=== PATIENT | female | born 1945 | race Caucasian/White ===

== ENCOUNTER 2017-06-27 19:29 | Inpatient (IN) ==
[2017-06-27] MEDS ORDERED: LACTATED RINGERS 1,000 ML IV ONE (19:55)
--- NOTE | 2017-06-27 19:55 | Emergency Department Note ---
General Adult HPI - General Chief complaint: Weakness Stated complaint: weakness Time Seen by Provider: 06/27/17 19:53 Source: EMS Mode of arrival: EMS Limitations: no limitations - History of Present Illness HPI Narrative: This patient in general has felt weak. She has had a cough recently she does have COPD on home oxygen. She says she does not feel any more short of breath than usual. - Related Data Home Medications Medication Instructions Recorded Confirmed aspirin 81 mg tablet,delayed 81 mg PO QDAY tab 11/20/14 06/05/17 release Albuterol Sulfate [Ventolin] 2 puff INH Q4HP PRN 07/20/15 06/05/17 Polyethylene Glycol 3350 [Miralax] 17 gm PO DAILYP PRN 07/20/15 06/05/17 Bowel Regimen 07/30/15 06/05/17 cholecalciferol (vitamin D3) 1,000 1,000 unit PO QDAY cap 11/21/16 06/05/17 unit capsule guaifenesin ER 600 mg tablet, 600 mg PO Q12H PRN 11/21/16 06/05/17 extended release 12 hr lactobacillus combination no.8 3 3,000 mmu cells PO QDAY 11/21/16 06/05/17 billion cell capsule magnesium oxide 400 mg capsule 400 mg PO QDAY 11/21/16 06/05/17 oxygen 3L via nasal cannula 11/21/16 06/05/17 vit C 150 mg-vit E 30 unit-lutein 1 cap PO QDAY 11/21/16 06/05/17 5 [id number] 3 150 mg capsule colchicine 0.6 mg tablet 0.6 mg PO QDAY 06/05/17 06/05/17 Previous Rx's Medication Instructions Recorded furosemide 40 mg tablet 80 mg PO QDAY 90 Days #180 tab 09/11/16 albuterol sulfate 2.5 mg/3 mL 2.5 mg INHALATION QID #360 ml 09/21/16 (0.083 %) solution for nebulization tiotropium bromide 18 mcg capsule 1 cap INHALATION QDAY #90 puff 10/06/16 with inhalation device lovastatin 40 mg tablet 40 mg PO QPM 90 Days #90 tab 12/04/16 losartan 100 mg tablet 100 mg PO QDAY 90 Days #90 tab 12/18/16 potassium chloride ER 10 mEq 10 meq PO TID 90 Days #270 tab 01/15/17 tablet,extended release Aggrenox 25 mg-200 mg capsule, 1 cap PO BID 90 Days #180 cap NS 02/06/17 extended release amlodipine 5 mg tablet 5 mg PO QDAY #90 tab 03/13/17 allopurinol 300 mg tablet 300 mg PO QDAY #90 tab 05/15/17 prednisone 10 mg tablet 10 mg PO DAILY #30 tab 06/05/17 Albuterol Sulfate [Ventolin] 2 puff INH Q4-6HP PRN #1 inhaler 06/15/17 predniSONE [Prednisone] 20 mg PO DAILY #23 tab 06/15/17 fentanyl 25 mcg/hr transdermal 1 patch TRANSDERMA Q72H #9 patch 06/26/17 patch hydrocodone 10 mg-acetaminophen 2 tab PO TID PRN #162 tab 06/26/17 325 mg tablet Allergies Allergy/AdvReac Type Severity Reaction Status Date / Time Cough syrup with codeine AdvReac Mild Gastrointestinal Uncoded 06/05/17 10:22 Upset Review of Systems All systems ED: reviewed and negative except as stated. Past Medical History - Past Medical History Medical history: Reports: COPD, hyperlipidemia, hypertension, osteoporosis, renal disease, other (eview of cellulitis. Bronchitis. UTI. Pneumonia. Severe sepsis. Spinal cord stimulator. Out. Cerebellar stroke syndrome. Degenerative arthritis.diverticulosis of colon. Vitamin D deficiency. Anemia.) [employer] history: Reports: non-contributory Surgical history ED: Reports: non-contributory, hysterectomy - Social History smoking status: Former smoker Alcohol use: Reports: Unknown Drug use: Reports: unknown Physical Exam Limitations: no limitations General appearance: alert, in no apparent distress Head: atraumatic Eye: Present: normal appearance ENT: normal exam Neck: Present: normal inspection Chest: Present: normal inspection Respiratory: Present: normal lung sounds bilaterally Cardiovascular: Present: regular rate, normal rhythm, normal heart sounds Abdominal: Present: soft. Absent: distention, tenderness Neurological: Present: alert Psychiatric: Present: normal affect, normal mood Skin: Present: warm, dry, intact Course Vital Signs Temperature 100.3 F H 06/27/17 19:30 Pulse Rate 115 H 06/27/17 19:30 Respiratory Rate 19 06/27/17 19:30 Blood Pressure 141/85 06/27/17 19:30 Pulse Oximetry (%) 97 06/27/17 19:30 Temperature 100.3 F H 06/27/17 19:30 Pulse Rate 109 H 06/27/17 20:46 Respiratory Rate 19 06/27/17 20:46 Blood Pressure 155/74 06/27/17 20:46 Pulse Oximetry (%) 98 06/27/17 20:46 Medical Decision Making - MDM Narrative Medical decision making narrative: Patient will be admitted to the hospital for presumed pneumonia - Lab Data Lab results reviewed: Yes I reviewed the patient's lab results. Result diagrams: 06/27/17 20:04 06/27/17 20:04 Lab Results 06/27/17 06/27/17 06/27/17 Range/Units 20:04 20:04 20:04 WBC 16.9 H (4.5-11.0) K/mcL RBC 3.90 L (4.00-5.20) M/mcL Hgb 12.6 (12.0-15.0) g/dL Hct 38.5 (36.0-48.0) % MCV 98.8 (80.0-100.0) fL MCH 32.4 (26.0-34.0) pg MCHC 32.8 (31.0-36.0) g/dL RDW 13.5 (11.5-14.5) % Plt Count 304 (140-440) K/mcL MPV 9.1 (7.4-10.4) fL Gran % 79.6 H (38.0-78.0) % Lymph % (Auto) 11.1 L (15.5-49.0) % [place] % (Auto) 7.7 (1.0-12.0) % Eos % (Auto) 1.1 (0.0-7.0) % Baso % (Auto) 0.5 (0.0-2.0) % Gran # 13.4 H (1.8-8.0) K/mcL Lymph # (Auto) 1.9 (1.5-4.8) K/mcL [place] # (Auto) 1.3 H (0.1-0.9) K/mcL Eos # (Auto) 0.2 (0.0-0.7) K/mcL Baso # (Auto) 0.1 (0.0-0.3) K/mcL VBG Lactic Acid 2.1 (0.5-2.2) mmol/L Sodium 141 (133-145) mmol/L Potassium 4.4 (3.3-5.1) mmol/L Chloride 94 L (96-108) mmol/L Carbon Dioxide 31 H (22-30) mmol/L Anion Gap 16.0 (8-16) BUN 27 H (8-23) mg/dl Creatinine 1.4 H (0.6-1.1) mg/dl GFR Calculation 38 Glucose 184 H (70-105) mg/dL Calcium 9.7 (8.6-10.4) mg/dl Total Bilirubin < 0.2 (0.0-1.0) mg/dL AST 15 (0-37) U/l ALT 17 (0-40) U/l Alkaline Phosphatase 73 (39-117) U/L Troponin T (0-0.03) ng/ml Total Protein 6.3 (5.9-8.4) gm/dL Albumin 3.7 (3.2-5.2) gm/dL Globulin 2.6 (2.2-3.7) gm/dL Albumin/Globulin Ratio 1.4 (1.0-2.3) 06/27/17 Range/Units 20:04 WBC (4.5-11.0) K/mcL RBC (4.00-5.20) M/mcL Hgb (12.0-15.0) g/dL Hct (36.0-48.0) % MCV (80.0-100.0) fL MCH (26.0-34.0) pg MCHC (31.0-36.0) g/dL RDW (11.5-14.5) % Plt Count (140-440) K/mcL MPV (7.4-10.4) fL Gran % (38.0-78.0) % Lymph % (Auto) (15.5-49.0) % [place] % (Auto) (1.0-12.0) % Eos % (Auto) (0.0-7.0) % Baso % (Auto) (0.0-2.0) % Gran # (1.8-8.0) K/mcL Lymph # (Auto) (1.5-4.8) K/mcL [place] # (Auto) (0.1-0.9) K/mcL Eos # (Auto) (0.0-0.7) K/mcL Baso # (Auto) (0.0-0.3) K/mcL VBG Lactic Acid (0.5-2.2) mmol/L Sodium (133-145) mmol/L Potassium (3.3-5.1) mmol/L Chloride (96-108) mmol/L Carbon Dioxide (22-30) mmol/L Anion Gap (8-16) BUN (8-23) mg/dl Creatinine (0.6-1.1) mg/dl GFR Calculation Glucose (70-105) mg/dL Calcium (8.6-10.4) mg/dl Total Bilirubin (0.0-1.0) mg/dL AST (0-37) U/l ALT (0-40) U/l Alkaline Phosphatase (39-117) U/L Troponin T < 0.01 (0-0.03) ng/ml Total Protein (5.9-8.4) gm/dL Albumin (3.2-5.2) gm/dL Globulin (2.2-3.7) gm/dL Albumin/Globulin Ratio (1.0-2.3) - Radiology Data Radiology results reviewed: Yes I reviewed the patient's radiology results. Disposition Pt seen by JACQUARD CARD LACER/PA only: No Clinical Impression: Pneumonia Disposition: Xfer As Inpt ([facility]) Condition: Fair Time of Disposition: 21:37
[2017-06-27 20:41] LABS: Basophils # (Auto) 0.1 K/mcL (0.0-0.3); Basophils % (Auto) 0.5 % (0.0-2.0); Eosinophils # (Auto) 0.2 K/mcL (0.0-0.7); Eosinophils % (Auto) 1.1 % (0.0-7.0); Granulocytes % (Auto) 79.6 % (38.0-78.0); Lymphocytes # (Auto) 1.9 K/mcL (1.5-4.8); Lymphocytes % (Auto) 11.1 % (15.5-49.0); Mean Cell Volume 98.8 fL (80.0-100.0); Mean Corpuscular HGB Conc 32.8 g/dL (31.0-36.0); Mean Corpuscular Hemoglobin 32.4 pg (26.0-34.0); Monocytes # (Auto) 1.3 K/mcL (0.1-0.9); Monocytes % (Auto) 7.7 % (1.0-12.0); Platelet Count 304 K/mcL (140-440); Red Cell Distribution Width 13.5 % (11.5-14.5)
[2017-06-27 21:03] LABS: ALT/SGPT 17 U/l (0-40); Albumin 3.7 gm/dL (3.2-5.2); Albumin/Globulin Ratio 1.4 (1.0-2.3); Alkaline Phosphatase 73 U/L (39-117); Blood Urea Nitrogen 27 mg/dl (8-23)
[2017-06-27] MEDS ORDERED: ACETAMINOPHEN 325 MG TABLET PO ONE (21:30)
[2017-06-27 22:50] LABS: Appearance,Urine CLEAR; Bacteria,Urine 0 /hpf (0); Bilirubin,Urine NEG (NEG); Color,Urine YELLOW; Glucose,Urine (UA) NEGATIVE (NEG); Leukocyte Esterase,Urine NEG /uL (NEG); Mucus,Urine FEW /hpf (0); Protein,Urine NEG (NEG); Specific Gravity,Urine 1.014 (1.000-1.035); Urine Blood NEG mg/dL (<0.03); Urine RBC < 1 /hpf (0-1); Urine Squamous Epithelial Cell < 1 /hpf (0-4); Urine Transitional Epi Cells < 1 /hpf (0-2); Urine WBC 0 /hpf (0-4); Urobilinogen,Urine NEG (NEG)
--- NOTE | 2017-06-27 22:54 | Internal Med History&Physical ---
Medical - H&P: HPI Patient information: Note initiated : 06/27/17 at 10:49 pm Service Date, if different from initiated Date: [] Patient: Yvon Estrada 72 y/o F admitted on for Weakness. Chief Complaint: [] History of present illness: Ms. Estrada is a 72 year old Female with severe copd, on 3L oxyen, morbidly obese, presents to the ER with fatige and shortness of breath with minimal activity going on for the last 2 days, the patient was here 12 days ago for shortness of breath and copd exacerbation and was treated with antibiotics and steroids, she never fully recovered from that episode. The patient notes that she just just weak and too fatigued to do anything, at baseline she is able to do basic transfer s and use her walker to go around the house a bit. But now even moving in the bed is too much ,denies any sick contacts, she has chr cough, may be slightly worse than before with minimal expectorations. Usually an infection/ pneumoina will get her very down as per her family. The patient has some headache, and chr back pain, She denies any other complaints She has severe copd on 3L oxygen at home uses prn prednisone and antibiotics, but this time since she just completed the course did not use it again. In the ER the patient was on 4L oxygen, usually uses 3L , she was short of breath with minimal activity, her labs show leucocytosis at 16K, creat is elevated at 1.4 (baseline 1.0 to 1). ABG shows Ph 7.45/54/109 on 4L UA poc is clear, Patient is being admitted to the hospital for possible pna/ copd exacerbation. All systems: reviewed and no additional remarkable complaints except as stated ( as per HPI,) Medical - H&P: PM Medical history: Medical History (Last Reviewed 06/05/17 @ 10:15 by Brittany Castro RN) Cellulitis (Acute) Abscess of skin or subcutaneous tissue (Acute) Upper respiratory infection (Acute) Bilateral otitis media (Acute) COPD (chronic obstructive pulmonary disease) (Acute) Hypertensive urgency (Acute) COPD exacerbation (Acute) Acute exacerbation of chronic obstructive airways disease (Acute) Otitis media (Acute) Oropharyngeal dysphagia (Chronic 08/04/15) Bronchitis (Acute) UTI (urinary tract infection) (Acute) Community acquired pneumonia (Acute) Severe sepsis (Acute) Pneumonia (Acute) Spinal cord stimulator status (Resolved) Essential hypertension (Chronic) Edema (Chronic) Gout (Chronic) Chronic obstructive pulmonary disease (Chronic 06/30/14) Back pain (Chronic) Cerebellar stroke syndrome (Chronic) Degenerative arthritis (Chronic) Osteoporosis screening (Chronic) Diverticulosis of colon (Chronic) Dyslipidemia (Chronic) Vitamin D deficiency (Chronic) Anemia (Chronic 01/20/14) Chronic kidney disease (Chronic 06/30/14) Abscess of skin (Inactive 06/16/14) Breast deformity (Inactive 06/16/14) COPD with acute bronchitis (Inactive) Acute bronchospasm (Inactive) Cough (Inactive) Methicillin resistant Staphylococcus aureus infection (Inactive 06/19/14) Proteinuria (Resolved) Spring ligament tear (Inactive 04/03/14) 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) Surgical history: Past Surgical History (Last Reviewed 06/05/17 @ 10:15 by Brittany Castro RN) History of hysterectomy (Resolved) History of colonoscopy (Resolved 04/04/10) Pertinent family history: Family History (Last Reviewed 06/05/17 @ 10:15 by Brittany Castro RN) Unknown No pertinent family history Medical - H&P: Meds Home Medications Medication Instructions Recorded Confirmed Type aspirin 81 mg tablet,delayed 81 mg PO QDAY tab 11/20/14 06/05/17 History release Albuterol Sulfate [Ventolin] 2 puff INH Q4HP PRN 07/20/15 06/05/17 History Polyethylene Glycol 3350 [Miralax] 17 gm PO DAILYP PRN 07/20/15 06/05/17 History Bowel Regimen 07/30/15 06/05/17 History furosemide 40 mg tablet 80 mg PO QDAY 90 Days #180 tab 09/11/16 06/05/17 Rx albuterol sulfate 2.5 mg/3 mL 2.5 mg INHALATION QID #360 ml 09/21/16 06/05/17 Rx (0.083 %) solution for nebulization tiotropium bromide 18 mcg capsule 1 cap INHALATION QDAY #90 puff 10/06/16 Rx with inhalation device cholecalciferol (vitamin D3) 1,000 1,000 unit PO QDAY cap 11/21/16 06/05/17 History unit capsule guaifenesin ER 600 mg tablet, 600 mg PO Q12H PRN 11/21/16 06/05/17 History extended release 12 hr lactobacillus combination no.8 3 3,000 mmu cells PO QDAY 11/21/16 06/05/17 History billion cell capsule magnesium oxide 400 mg capsule 400 mg PO QDAY 11/21/16 06/05/17 History oxygen 3L via nasal cannula 11/21/16 06/05/17 History vit C 150 mg-vit E 30 unit-lutein 1 cap PO QDAY 11/21/16 06/05/17 History 5 [id number] 3 150 mg capsule lovastatin 40 mg tablet 40 mg PO QPM 90 Days #90 tab 12/04/16 06/05/17 Rx losartan 100 mg tablet 100 mg PO QDAY 90 Days #90 tab 12/18/16 06/05/17 Rx potassium chloride ER 10 mEq 10 meq PO TID 90 Days #270 tab 01/15/17 06/05/17 Rx tablet,extended release Aggrenox 25 mg-200 mg capsule, 1 cap PO BID 90 Days #180 cap NS 02/06/17 Rx extended release amlodipine 5 mg tablet 5 mg PO QDAY #90 tab 03/13/17 06/05/17 Rx allopurinol 300 mg tablet 300 mg PO QDAY #90 tab 05/15/17 06/05/17 Rx colchicine 0.6 mg tablet 0.6 mg PO QDAY 06/05/17 06/05/17 History prednisone 10 mg tablet 10 mg PO DAILY #30 tab 06/05/17 06/05/17 Rx Albuterol Sulfate [Ventolin] 2 puff INH Q4-6HP PRN #1 inhaler 06/15/17 Rx predniSONE [Prednisone] 20 mg PO DAILY #23 tab 06/15/17 Rx fentanyl 25 mcg/hr transdermal 1 patch TRANSDERMA Q72H #9 patch 06/26/17 Rx patch hydrocodone 10 mg-acetaminophen 2 tab PO TID PRN #162 tab 06/26/17 06/26/17 Rx 325 mg tablet Allergies Allergy/AdvReac Type Severity Reaction Status Date / Time Cough syrup with codeine AdvReac Mild Gastrointestinal Uncoded 06/05/17 10:22 Upset Medical - H&P: Exam - Constitutional Vitals: Temp Pulse Resp BP Pulse Ox 100.3 F H 107 H 24 H 141/71 98 06/27/17 19:30 06/27/17 22:16 06/27/17 22:16 06/27/17 22:16 06/27/17 22:16 Exam: GENERAL: The patient is a well-developed, well-nourished in no apparent distress. Is alert and oriented x3. Morbidly obese VITAL SIGNS: Reviewed and as noted elsewhere. HEENT: Head is normocephalic and atraumatic. Extraocular muscles are intact. Pupils are equal, round, and reactive to light. Nares appeared normal. Mouth appears any without lesions. Mucous membranes are dry. NECK: Normal to inspection, Supple, No lymphadenopathy or thyromegaly, short neck . LUNGS: Air entry equal on both sides, kenia poor air entry, kenia exp wheezing, prolonged exp phase, pt speaks 5-6 words then rests, (not sure baseline) no use of accesory muscles. HEART: Regular tachycardic rate and rhythm normal, S1 and S2 heard, no Gallop, S3 or Rub Noted, No Gross murmur heard. ABDOMEN: Soft, nontender, and nondistended. Positive bowel sounds. No hepatosplenomegaly was noted. EXTREMITIES: No cyanosis, clubbing, rash, lesions or kenia trace edema. NEUROLOGIC: Cranial nerves II through XII are grossly intact. Motor and Sensory System Grossly Intact PSYCHIATRIC: Normal affect, Normal Mood. Appropriate Behavior. SKIN: No ulceration or wounds noted, No jaundice, No rash noted. (dry feet, scaly poorly kept feet) Medical - H&P: Reslt - Labs CBC & Chem 7: 06/27/17 20:04 06/27/17 20:04 Labs: Short CBC 06/27/17 Range/Units 20:04 WBC 16.9 H (4.5-11.0) K/mcL Hgb 12.6 (12.0-15.0) g/dL Hct 38.5 (36.0-48.0) % Plt Count 304 (140-440) K/mcL BMP 06/27/17 20:04 Sodium 141 Potassium 4.4 Chloride 94 L Carbon Dioxide 31 H BUN 27 H Creatinine 1.4 H Glucose 184 H Calcium 9.7 Cardiac Enzymes 06/27/17 Range/Units 20:04 Troponin T < 0.01 (0-0.03) ng/ml Liver Function 06/27/17 Range/Units 20:04 Total Bilirubin < 0.2 (0.0-1.0) mg/dL AST 15 (0-37) U/l ALT 17 (0-40) U/l Alkaline Phosphatase 73 (39-117) U/L Albumin 3.7 (3.2-5.2) gm/dL Medical - H&P: A/P - Narrative A/P Narrative: A/P Health care associated pneumonia Leucocytosis Acute on chr hypoxic / hypercapenic resp failure on 3L oxygen at baseline, now needs 4 morbid obesity Chr back pain HTN HLD h/o CVA in the past Gout severe fatigue Plan Admit to med surg Check procalcitonin, await official X ray results, possibly has some infiltrate on the left base, Pt has leucocytosis, but also has h/o recent steroid use. IV antibiotics, vancomycin and zosyn Get blood cultures, not making much sputum, so will not order sputum cx check tsh IV steoids, Duonebs Continue supplemental oxygen Prn bipap if needed IV dialudid and hydrocodone for pain for now, Resume home meds once verifed DVT lovenox sq Diet Regular diet DNR code status. Social History - Social History household members: family housing: house lives independently: Yes (Daughter assists patient) marital status: occupational status: retired - Tobacco smoking status: Former smoker - Alcohol alcohol intake frequency: a few times a month - Substance use substance use type: does not use
[2017-06-27] MEDS ORDERED: HYDROmorphone 2 MG/ML VIAL IV PRN (23:37)
[2017-06-27] MEDS ORDERED: VANCOMYCIN 1,500 MG in 0.9 % SODIUM CHLORIDE 500 ML IV ONE (23:37)
[2017-06-27] MEDS ORDERED: ONDANSETRON 4 MG/2 ML VIAL IV PRN (23:37)
[2017-06-27] MEDS ORDERED: ACETAMINOPHEN 325 MG TABLET PO PRN (23:37)
[2017-06-27] MEDS ORDERED: VANCOMYCIN PER PHARMACY IV ONE (23:37)
[2017-06-27] MEDS: 0.9 % SODIUM CHLORIDE 1,000 ML IV SCH (23:56)
[2017-06-27 23:57] LABS: proBNP 322.4 pg/ml (0-125)
[2017-06-27] MEDS: PIPERACILLIN SODIUM/TAZOBACTAM 3.375 GM in DEXTROSE 5% IN WATER 50 ML IV SCH (23:57)
[2017-06-28] MEDS ORDERED: HYDROcodone/APAP 10/325MG TABLET PO ONE (00:14)
[2017-06-28] MEDS ORDERED: methylPREDNISolone SOD SUCC 125 MG/2 ML VIAL ONE ×2 (00:14→06:07)
[2017-06-28] MEDS ORDERED: fentaNYL 25 MCG PATCH TOPICAL SCH (00:15)
[2017-06-28] MEDS ORDERED: IPRATROPIUM/ALBUTEROL 3 ML AMPUL.NEB NEB ONE ×2 (00:15→03:56)
[2017-06-28] MEDS ORDERED: fentaNYL 25 MCG PATCH TD SCH (00:15)
[2017-06-28] MEDS: IPRATROPIUM/ALBUTEROL 3 ML AMPUL.NEB NEB SCH ×7 (00:20→23:06)
[2017-06-28] MEDS: methylPREDNISolone SOD SUCC 125 MG/2 ML VIAL IV SCH ×4 (00:20→22:28)
[2017-06-28] MEDS ORDERED: fentaNYL 25 MCG PATCH ONE (00:23)
[2017-06-28] MEDS: PIPERACILLIN SODIUM/TAZOBACTAM 3.375 GM in DEXTROSE 5% IN WATER 50 ML IV SCH ×3 (05:33→17:48)
[2017-06-28] MEDS: 0.9 % SODIUM CHLORIDE 10 ML SYRINGE IV SCH ×3 (05:34→22:28)
[2017-06-28 05:44] LABS: Basophils # (Auto) 0 K/mcL (0.0-0.3); Basophils % (Auto) 0 % (0.0-2.0); Eosinophils # (Auto) 0.1 K/mcL (0.0-0.7); Eosinophils % (Auto) 0.8 % (0.0-7.0); Granulocytes % (Auto) 90.7 % (38.0-78.0); Lymphocytes # (Auto) 1.3 K/mcL (1.5-4.8); Lymphocytes % (Auto) 7.6 % (15.5-49.0); Mean Cell Volume 101.3 fL (80.0-100.0); Mean Corpuscular HGB Conc 32.4 g/dL (31.0-36.0); Mean Corpuscular Hemoglobin 32.9 pg (26.0-34.0); Monocytes # (Auto) 0.2 K/mcL (0.1-0.9); Monocytes % (Auto) 0.9 % (1.0-12.0); Platelet Count 256 K/mcL (140-440); RBC 3.59 M/mcL (4.00-5.20); Red Cell Distribution Width 14.2 % (11.5-14.5)
[2017-06-28 06:24] LABS: ALT/SGPT 15 U/l (0-40); Albumin 3.6 gm/dL (3.2-5.2); Albumin/Globulin Ratio 1.4 (1.0-2.3); Alkaline Phosphatase 67 U/L (39-117); Bilirubin,Direct < 0.2 mg/dL (0.0-0.3); Blood Urea Nitrogen 24 mg/dl (8-23); Gamma Glutamyl Transpeptidase 49 U/L (5-36); Uric Acid 4.2 mg/dL (2.5-8.0)
--- NOTE | 2017-06-28 06:37 | XRay Report ---
CLINICAL INFORMATION: Cough COMPARISON: 06/15/2017 FINDINGS: Mild cardiomegaly is unchanged. Mediastinum and pulmonary vessels are normal. There is minor bibasilar atelectasis/scarring. No jyoti infiltrates or effusions IMPRESSION: Minor bibasilar scarring or atelectasis Interpreted and Authenticated by: Chon Pettit 06/28/17
[2017-06-28] MEDS ORDERED: VANCOMYCIN PER PHARMACY IV SCH (07:00)
[2017-06-28] MEDS: HYDROcodone/APAP 10/325MG TABLET PO PRN ×3 (07:38→16:59)
[2017-06-28] MEDS: VITAMIN D3 1,000 UNIT TABLET PO SCH (08:29)
[2017-06-28] MEDS: ENOXAPARIN 40 MG/0.4 ML SYRINGE SQ SCH (08:29)
[2017-06-28] MEDS: amLODIPine 5 MG TABLET PO SCH (08:29)
[2017-06-28] MEDS: ALLOPURINOL 300 MG TABLET PO SCH (08:29)
[2017-06-28] MEDS: DOCUSATE SODIUM 100 MG CAPSULE PO SCH ×2 (08:29→20:12)
[2017-06-28] MEDS: MAGNESIUM OXIDE 400 MG TABLET PO SCH (08:29)
[2017-06-28] MEDS: ASPIRIN 81 MG TAB.CHEW PO SCH (08:29)
[2017-06-28] MEDS: VANCOMYCIN 1,500 MG in 0.9 % SODIUM CHLORIDE 500 ML IV SCH ×2 (08:30→20:12)
[2017-06-28] MEDS: ASPIRIN PO SCH ×2 (09:16→20:12)
[2017-06-28] MEDS: DIPYRIDAMOLE PO SCH ×2 (09:16→20:12)
[2017-06-28] MEDS: 0.9 % SODIUM CHLORIDE 1,000 ML IV SCH ×2 (12:35→17:18)
--- NOTE | 2017-06-28 15:47 | Internal Med Progress Note ---
Medical - PN: Subj Patient information: Note initiated : 06/28/17 at 3:44 pm Service Date, if different from initiated Date: [] Patient: Yvon Estrada 72 y/o F admitted on 06/27/17 for Weakness/Pneumonia. Chief Complaint: [] Interval history: Ms. Estrada is a 72 year old Female with severe copd, on 3L oxyen, morbidly obese, presents to the ER with fatige and shortness of breath with minimal activity going on for the last 2 days, the patient was here 12 days ago for shortness of breath and copd exacerbation and was treated with antibiotics and steroids, she never fully recovered from that episode. The patient notes that she just just weak and too fatigued to do anything, at baseline she is able to do basic transfer s and use her walker to go around the house a bit. But now even moving in the bed is too much ,denies any sick contacts, she has chr cough, may be slightly worse than before with minimal expectorations. Usually an infection/ pneumoina will get her very down as per her family. The patient has some headache, and chr back pain, She denies any other complaints She has severe copd on 3L oxygen at home uses prn prednisone and antibiotics, but this time since she just completed the course did not use it again. In the ER the patient was on 4L oxygen, usually uses 3L , she was short of breath with minimal activity, her labs show leucocytosis at 16K, creat is elevated at 1.4 (baseline 1.0 to 1). ABG shows Ph 7.45/54/109 on 4L UA poc is clear, Patient is being admitted to the hospital for possible pna/ copd exacerbation. 06/28- patient feels remarkably better than previous day. Was able to ambulate. Currently on 2 L oxygen. No overnight fever chills with a MAXIMUM TEMPERATURE of 100.3 on admission. persistent leukocytosis 17.6 with 91% neutrophils however sepsis and end organ dysfunction clinically improved . creatinine down from 1.4-1.1. daughter at bedside. Patient reluctant to go to [facility] despite significant decompensation and minimal help with her daughter who lives in her basement but has to work during the day. discussed the importance of posthospitalization short-term rehabilitation. patient contemplating on SNF. continuing antibiotic coverage for nosocomial pneumonia. - Constitutional Vitals: Vital Signs Temp Pulse Resp BP Pulse Ox 97.6 F 98 H 16 148/70 96 06/28/17 11:55 06/28/17 15:32 06/28/17 15:32 06/28/17 11:55 06/28/17 10:51 Period Temp Pulse Resp BP Sys/Torres Pulse Ox Last 24 Hr 96.8 F-100.3 F 98-120 15-30 118-176/67-93 96-99 Intake and Output 06/28/17 06/28/17 06/28/17 05:59 13:59 21:59 Intake Total 300 / 300 350 / 350 200 / 200 Output Total 800 / 800 650 / 650 600 / 600 Balance -500 / -500 -300 / -300 -400 / -400 Weight 205 lb Intake & Output: Intake & Output 06/28/17 06/28/17 06/28/17 05:59 13:59 21:59 Intake Total 300 / 300 350 / 350 200 / 200 Output Total 800 / 800 650 / 650 600 / 600 Balance -500 / -500 -300 / -300 -400 / -400 Weight 205 lb Intake: IV 50 / 50 50 / 50 Zosyn 3.375 gm In Dextrose 5% 50 / 50 50 / 50 in Water 50 ml @ 100 mls/hr IV Q6H [facility] Rx#:[id number] Oral 250 / 250 300 / 300 200 / 200 Output: Urine Catheter Amount 800 / 800 650 / 650 Void Amount 600 / 600 Other: Meal Breakfast Percent of Meal Consumed 100% Feeding Ability Assist with Tray Set Up General appearance: cooperative, no acute distress Exam: alert oriented nonlabored breathing Able to talk in full sentences No lymphedema or pallor Medical - PN: Obj Da - Labs CBC & Chem 7: 06/28/17 04:06 06/28/17 04:06 Labs: Abnormal Lab Results 06/28/17 06/28/17 06/27/17 04:06 04:06 22:20 WBC 17.6 H RBC 3.59 L Hgb 11.8 L MCV 101.3 H Gran % 90.7 H Lymph % (Auto) 7.6 L [place] % (Auto) 0.9 L Gran # 16.0 H Lymph # (Auto) 1.3 L [place] # (Auto) Chloride Carbon Dioxide BUN 24 H Creatinine Glucose 191 H GGT 49 H NT-Pro-B Natriuret Pep 322.4 H Triglycerides 256 H 06/27/17 06/27/17 20:04 20:04 WBC 16.9 H RBC 3.90 L Hgb MCV Gran % 79.6 H Lymph % (Auto) 11.1 L [place] % (Auto) Gran # 13.4 H Lymph # (Auto) [place] # (Auto) 1.3 H Chloride 94 L Carbon Dioxide 31 H BUN 27 H Creatinine 1.4 H Glucose 184 H GGT NT-Pro-B Natriuret Pep Triglycerides Meds: Medications Acetaminophen (Tylenol) 650 mg PO Q6HP PRN PRN Reason: PAIN/FEVER > 101 Hydrocodone Bitart/Acetaminophen ([place] 10/325mg) 1 tab PO Q4HP PRN PRN Reason: PAIN LEVEL 3-6 Last Admin: 06/28/17 13:01 Dose: 1 tab Albuterol/Ipratropium (Duoneb) 3 ml NEB Q4HRT [facility] Last Admin: 06/28/17 15:30 Dose: 3 ml Allopurinol (Zylopriim) 300 mg PO QDAY [facility] Last Admin: 06/28/17 08:29 Dose: 300 mg Amlodipine Besylate (Norvasc) 5 mg PO QDAY [facility] Last Admin: 06/28/17 08:29 Dose: 5 mg Aspirin (Aspirin) 81 mg PO DAILY [facility] Last Admin: 06/28/17 08:29 Dose: 81 mg Atorvastatin Calcium (Lipitor) 10 mg PO HS [facility] Dipyridamole/Aspirin (Aggrenox 25 Mg-200 Mg Capsule) 1 cap PO BID [facility] Last Admin: 06/28/17 09:16 Dose: 1 cap Docusate Sodium (Colace) 100 mg PO BID [facility] Last Admin: 06/28/17 08:29 Dose: 100 mg Enoxaparin Sodium (Lovenox) 40 mg SQ DAILY [facility] Last Admin: 06/28/17 08:29 Dose: 40 mg Fentanyl (Duragesic) 25 mcg TOPICAL Q72H [facility] Hydromorphone HCl (Dilaudid) 0.5 mg IV Q2HP PRN PRN Reason: PAIN LEVEL > 6 Sodium Chloride (Sodium Chloride 0.9%) 1,000 mls @ 100 mls/hr IV .Q10H [facility] Stop: 06/28/17 19:36 Last Admin: 06/28/17 12:35 Dose: Not Given Piperacillin Sod/Tazobactam (Sod 3.375 gm/ Dextrose) 50 mls @ 100 mls/hr IV Q6H [facility] Last Admin: 06/28/17 11:39 Dose: 100 mls/hr Vancomycin HCl 1,500 mg/ (Sodium Chloride) 500 mls @ 333.3 mls/hr IV Q12H [facility] Last Admin: 06/28/17 08:30 Dose: 333.3 mls/hr Magnesium Oxide (Magnesium Oxide) 400 mg PO DAILY [facility] Last Admin: 06/28/17 08:29 Dose: 400 mg Methylprednisolone Sodium Succinate (Solu-Medrol) 62.5 mg IV Q8 [facility] Last Admin: 06/28/17 14:00 Dose: 62.5 mg Ondansetron HCl (Zofran) 4 mg IV Q6HP PRN PRN Reason: Nausea And Vomiting Sodium Chloride (Saline Flush) 10 ml IV Q8 [facility] Last Admin: 06/28/17 14:01 Dose: Not Given Vancomycin HCl (Vancomycin Per Pharmacy) 1 order IV UD [facility] Vitamin D (Vitamin D3) 1,000 unit PO DAILY [facility] Last Admin: 06/28/17 08:29 Dose: 1,000 unit Medical - PN: A/P - Time Spent With Patient Total time spent is greater than 50% in coordination of care (as documented) at patient's floor/unit and/or counseling patient: 25 - 35 minutes (1) Nosocomial pneumonia Status: Acute Assessment and plan: [id number] with history of COPD admitted to sepsis and nosocomial pneumonia * nosocomial pneumonia-on broad antibiotic coverage. De-escalate in 24-48 hours once culture sensitivities available. Patient clinically improving. * Sepsis secondary to above- persistent leukocytosis however clinical improvement. * acute kidney injury secondary to sepsis end organ dysfunction- clinically improved. Creatinine down to 1.1 * O2 dependent COPD continue bronchodilators /steroids * history of CVA on Aggrenox/statin * Hypertension on amlodipine * history of gout on allopurinol * DVT prophylaxis on Lovenox * DNR Plan * Sepsis management per protocol * Broad antibiotic coverage * continue bronchodilators/steroids * pre-existing medical condition management on home meds Current Visit: Yes Medical - PN: Qual - VTE Deep Vein Thrombosis/Pulmonary Embolism Present on Admission: No
[2017-06-28] MEDS: ATORVASTATIN 20 MG TABLET PO SCH (20:12)
[2017-06-29] MEDS: HYDROcodone/APAP 10/325MG TABLET PO PRN ×5 (00:43→21:29)
[2017-06-29] MEDS: PIPERACILLIN SODIUM/TAZOBACTAM 3.375 GM in DEXTROSE 5% IN WATER 50 ML IV SCH ×2 (00:44→05:49)
[2017-06-29] MEDS: IPRATROPIUM/ALBUTEROL 3 ML AMPUL.NEB NEB SCH ×5 (03:46→18:52)
[2017-06-29 05:38] LABS: Basophils # (Auto) 0 K/mcL (0.0-0.3); Basophils % (Auto) 0.1 % (0.0-2.0); Eosinophils # (Auto) 0.1 K/mcL (0.0-0.7); Eosinophils % (Auto) 0.5 % (0.0-7.0); Granulocytes % (Auto) 91.6 % (38.0-78.0); Lymphocytes % (Auto) 6.3 % (15.5-49.0); Mean Cell Volume 100.7 fL (80.0-100.0); Mean Corpuscular HGB Conc 32.8 g/dL (31.0-36.0); Monocytes # (Auto) 0.2 K/mcL (0.1-0.9); Monocytes % (Auto) 1.5 % (1.0-12.0); Platelet Count 239 K/mcL (140-440); RBC 3.39 M/mcL (4.00-5.20); Red Cell Distribution Width 14.1 % (11.5-14.5)
[2017-06-29] MEDS: methylPREDNISolone SOD SUCC 125 MG/2 ML VIAL IV SCH (05:49)
[2017-06-29] MEDS: 0.9 % SODIUM CHLORIDE 10 ML SYRINGE IV SCH ×3 (06:04→21:31)
[2017-06-29 06:32] LABS: ALT/SGPT 18 U/l (0-40); Albumin 3.3 gm/dL (3.2-5.2); Albumin/Globulin Ratio 1.3 (1.0-2.3); Alkaline Phosphatase 59 U/L (39-117); Bilirubin,Direct < 0.2 mg/dL (0.0-0.3); Blood Urea Nitrogen 22 mg/dl (8-23); Gamma Glutamyl Transpeptidase 53 U/L (5-36); Uric Acid 2.8 mg/dL (2.5-8.0)
--- NOTE | 2017-06-29 08:04 | Internal Med Progress Note ---
Medical - PN: Subj Patient information: Note initiated : 06/29/17 at 7:59 am Service Date, if different from initiated Date: [] Patient: Yvon Estrada 72 y/o F admitted on 06/27/17 for Weakness/Pneumonia. Chief Complaint: [] Interval history: Ms. Estrada is a 72 year old Female with severe copd, on 3L oxyen, morbidly obese, presents to the ER with fatige and shortness of breath with minimal activity going on for the last 2 days, the patient was here 12 days ago for shortness of breath and copd exacerbation and was treated with antibiotics and steroids, she never fully recovered from that episode. The patient notes that she just just weak and too fatigued to do anything, at baseline she is able to do basic transfer s and use her walker to go around the house a bit. But now even moving in the bed is too much ,denies any sick contacts, she has chr cough, may be slightly worse than before with minimal expectorations. Usually an infection/ pneumoina will get her very down as per her family. The patient has some headache, and chr back pain, She denies any other complaints She has severe copd on 3L oxygen at home uses prn prednisone and antibiotics, but this time since she just completed the course did not use it again. In the ER the patient was on 4L oxygen, usually uses 3L , she was short of breath with minimal activity, her labs show leucocytosis at 16K, creat is elevated at 1.4 (baseline 1.0 to 1). ABG shows Ph 7.45/54/109 on 4L UA poc is clear, Patient is being admitted to the hospital for possible pna/ copd exacerbation. 06/28- patient feels remarkably better than previous day. Was able to ambulate. Currently on 2 L oxygen. No overnight fever chills with a MAXIMUM TEMPERATURE of 100.3 on admission. persistent leukocytosis 17.6 with 91% neutrophils however sepsis and end organ dysfunction clinically improved . creatinine down from 1.4-1.1. daughter at bedside. Patient reluctant to go to senior care home despite significant decompensation and minimal help with her daughter who lives in her basement but has to work during the day. discussed the importance of posthospitalization short-term rehabilitation. patient contemplating on SNF. continuing antibiotic coverage for nosocomial pneumonia. 06/29- Patient doing well. No overnight events. White count downtrending to 16.4. Much improved shortness of breath. Ambulating with physical therapy. Poorly motivated. DC Hayward's catheter today. Anticipate discharge to rehabilitation after patient reluctantly agreed. No overnight fever chills.on 3 L oxygen.continue existing treatment - Constitutional Vitals: Vital Signs Temp Pulse Resp BP Pulse Ox 96.9 F L 95 H 18 168/82 98 06/29/17 04:00 06/29/17 07:20 06/29/17 07:20 06/29/17 04:00 06/29/17 07:47 Period Temp Pulse Resp BP Sys/Torres Pulse Ox Last 24 Hr 96.9 F-98.0 F 95-116 16-22 132-168/70-82 96-98 Intake and Output 06/28/17 06/29/17 06/29/17 21:59 05:59 13:59 Intake Total 1300 / 1300 300 / 300 50 / 50 Output Total 1600 / 1600 1550 / 1550 Balance -300 / -300 -1250 / -1250 50 / 50 Weight 213 lb Intake & Output: Intake & Output 06/28/17 06/29/17 06/29/17 21:59 05:59 13:59 Intake Total 1300 / 1300 300 / 300 50 / 50 Output Total 1600 / 1600 1550 / 1550 Balance -300 / -300 -1250 / -1250 50 / 50 Weight 213 lb Intake: IV 550 / 550 50 / 50 50 / 50 Zosyn 3.375 gm In Dextrose 5% 50 / 50 50 / 50 50 / 50 in Water 50 ml @ 100 mls/hr IV Q6H [facility] Rx#:[id number] Vancomycin 1,500 mg In Sodium 500 / 500 Chloride 0.9% 500 ml @ 333.3 mls/hr IV Q12H [facility] Rx#: [id number] Oral 750 / 750 250 / 250 Output: Urine Catheter Amount 1000 / 1000 1550 / 1550 Void Amount 600 / 600 Other: Meal Dinner Percent of Meal Consumed 100% General appearance: cooperative, no acute distress Exam: nonlabored no distress breathing Foleys catheter draining clear urine no lymphedema No anxiety Medical - PN: Obj Da - Labs CBC & Chem 7: 06/29/17 04:25 06/29/17 04:25 Labs: Abnormal Lab Results 06/29/17 06/29/17 06/28/17 04:25 04:25 04:06 WBC 16.4 H RBC 3.39 L Hgb 11.2 L Hct 34.1 L MCV 100.7 H Gran % 91.6 H Lymph % (Auto) 6.3 L [place] % (Auto) Gran # 15.0 H Lymph # (Auto) 1.0 L [place] # (Auto) Chloride Carbon Dioxide BUN 24 H Creatinine Glucose 251 H 191 H Phosphorus 2.6 L GGT 53 H 49 H NT-Pro-B Natriuret Pep Total Protein 5.8 L Triglycerides 155 H 256 H 06/28/17 06/27/17 06/27/17 04:06 22:20 20:04 WBC 17.6 H RBC 3.59 L Hgb 11.8 L Hct MCV 101.3 H Gran % 90.7 H Lymph % (Auto) 7.6 L [place] % (Auto) 0.9 L Gran # 16.0 H Lymph # (Auto) 1.3 L [place] # (Auto) Chloride 94 L Carbon Dioxide 31 H BUN 27 H Creatinine 1.4 H Glucose 184 H Phosphorus GGT NT-Pro-B Natriuret Pep 322.4 H Total Protein Triglycerides 06/27/17 20:04 WBC 16.9 H RBC 3.90 L Hgb Hct MCV Gran % 79.6 H Lymph % (Auto) 11.1 L [place] % (Auto) Gran # 13.4 H Lymph # (Auto) [place] # (Auto) 1.3 H Chloride Carbon Dioxide BUN Creatinine Glucose Phosphorus GGT NT-Pro-B Natriuret Pep Total Protein Triglycerides Meds: Medications Acetaminophen (Tylenol) 650 mg PO Q6HP PRN PRN Reason: PAIN/FEVER > 101 Hydrocodone Bitart/Acetaminophen (Mark 10/325mg) 1 tab PO Q4HP PRN PRN Reason: PAIN LEVEL 3-6 Last Admin: 06/29/17 04:40 Dose: 1 tab Albuterol/Ipratropium (Duoneb) 3 ml NEB Q4HRT [facility] Last Admin: 06/29/17 07:15 Dose: 3 ml Allopurinol (Zylopriim) 300 mg PO QDAY [facility] Last Admin: 06/28/17 08:29 Dose: 300 mg Amlodipine Besylate (Norvasc) 5 mg PO QDAY [facility] Last Admin: 06/28/17 08:29 Dose: 5 mg Aspirin (Aspirin) 81 mg PO DAILY [facility] Last Admin: 06/28/17 08:29 Dose: 81 mg Atorvastatin Calcium (Lipitor) 10 mg PO HS [facility] Last Admin: 06/28/17 20:12 Dose: 10 mg Dipyridamole/Aspirin (Aggrenox 25 Mg-200 Mg Capsule) 1 cap PO BID [facility] Last Admin: 06/28/17 20:12 Dose: 1 cap Docusate Sodium (Colace) 100 mg PO BID [facility] Last Admin: 06/28/17 20:12 Dose: 100 mg Enoxaparin Sodium (Lovenox) 40 mg SQ DAILY [facility] Last Admin: 06/28/17 08:29 Dose: 40 mg Fentanyl (Duragesic) 25 mcg TOPICAL Q72H [facility] Hydromorphone HCl (Dilaudid) 0.5 mg IV Q2HP PRN PRN Reason: PAIN LEVEL > 6 Piperacillin Sod/Tazobactam (Sod 3.375 gm/ Dextrose) 50 mls @ 100 mls/hr IV Q6H [facility] Last Infusion: 06/29/17 06:19 Dose: Infused Vancomycin HCl 1,500 mg/ (Sodium Chloride) 500 mls @ 333.3 mls/hr IV Q12H [facility] Last Infusion: 06/28/17 21:43 Dose: Infused Magnesium Oxide (Magnesium Oxide) 400 mg PO DAILY [facility] Last Admin: 06/28/17 08:29 Dose: 400 mg Methylprednisolone Sodium Succinate (Solu-Medrol) 62.5 mg IV Q8 [facility] Last Admin: 06/29/17 05:49 Dose: 62.5 mg Ondansetron HCl (Zofran) 4 mg IV Q6HP PRN PRN Reason: Nausea And Vomiting Sodium Chloride (Saline Flush) 10 ml IV Q8 [facility] Last Admin: 06/29/17 06:04 Dose: Not Given Vancomycin HCl (Vancomycin Per Pharmacy) 1 order IV UD [facility] Vitamin D (Vitamin D3) 1,000 unit PO DAILY [facility] Last Admin: 06/28/17 08:29 Dose: 1,000 unit Medical - PN: A/P - Time Spent With Patient Total time spent is greater than 50% in coordination of care (as documented) at patient's floor/unit and/or counseling patient: 25 - 35 minutes (1) Nosocomial pneumonia Status: Acute Assessment and plan: [id number] with history of COPD admitted to sepsis and nosocomial pneumonia * Nosocomial pneumonia-on broad antibiotic coverage. De-escalate today. Patient clinically improved * Sepsis secondary to above- improving leukocytosis * acute kidney injury secondary to sepsis end organ dysfunction-creatinine 1.09 down from 1.4 * O2 dependent COPD continue bronchodilators /steroids * history of CVA on Aggrenox/statin * Hypertension on amlodipine * history of gout on allopurinol * DVT prophylaxis on Lovenox * DNR Plan * DC vancomycin and Zosyn and continue Levaquin * Switch to oral steroids * pre-existing medical condition management on home meds * PT OT * discharge to rehabilitation in a.m. Current Visit: Yes Medical - PN: Qual - VTE Deep Vein Thrombosis/Pulmonary Embolism Present on Admission: No
[2017-06-29] MEDS: ALLOPURINOL 300 MG TABLET PO SCH (09:48)
[2017-06-29] MEDS: MAGNESIUM OXIDE 400 MG TABLET PO SCH (09:49)
[2017-06-29] MEDS: amLODIPine 5 MG TABLET PO SCH (09:49)
[2017-06-29] MEDS: ASPIRIN 81 MG TAB.CHEW PO SCH (09:49)
[2017-06-29] MEDS: VITAMIN D3 1,000 UNIT TABLET PO SCH (09:49)
[2017-06-29] MEDS: DOCUSATE SODIUM 100 MG CAPSULE PO SCH ×2 (09:49→21:27)
[2017-06-29] MEDS: LEVOFLOXACIN 500 MG/100 ML BAG IV SCH (09:51)
[2017-06-29] MEDS: DIPYRIDAMOLE PO SCH ×2 (09:51→21:26)
[2017-06-29] MEDS: ASPIRIN PO SCH ×2 (09:51→21:26)
[2017-06-29] MEDS: ENOXAPARIN 40 MG/0.4 ML SYRINGE SQ SCH (09:51)
[2017-06-29] MEDS: ATORVASTATIN 20 MG TABLET PO SCH (21:27)
[2017-06-30] MEDS: HYDROcodone/APAP 10/325MG TABLET PO PRN ×2 (03:25→09:55)
[2017-06-30] MEDS: IPRATROPIUM/ALBUTEROL 3 ML AMPUL.NEB NEB SCH ×3 (04:01→08:20)
[2017-06-30 05:16] LABS: Basophils # (Auto) 0 K/mcL (0.0-0.3); Basophils % (Auto) 0.1 % (0.0-2.0); Eosinophils # (Auto) 0.6 K/mcL (0.0-0.7); Eosinophils % (Auto) 3.3 % (0.0-7.0); Granulocytes % (Auto) 76.9 % (38.0-78.0); Lymphocytes # (Auto) 2.4 K/mcL (1.5-4.8); Lymphocytes % (Auto) 13.9 % (15.5-49.0); Mean Cell Volume 102.3 fL (80.0-100.0); Mean Corpuscular HGB Conc 31.7 g/dL (31.0-36.0); Mean Corpuscular Hemoglobin 32.5 pg (26.0-34.0); Monocytes % (Auto) 5.8 % (1.0-12.0); Platelet Count 233 K/mcL (140-440); RBC 3.28 M/mcL (4.00-5.20); Red Cell Distribution Width 13.8 % (11.5-14.5)
[2017-06-30 05:35] LABS: ALT/SGPT 18 U/l (0-40); Albumin 3.2 gm/dL (3.2-5.2); Albumin/Globulin Ratio 1.5 (1.0-2.3); Alkaline Phosphatase 53 U/L (39-117); Bilirubin,Direct < 0.2 mg/dL (0.0-0.3); Blood Urea Nitrogen 24 mg/dl (8-23); Gamma Glutamyl Transpeptidase 52 U/L (5-36); Uric Acid 3.1 mg/dL (2.5-8.0)
[2017-06-30] MEDS: 0.9 % SODIUM CHLORIDE 10 ML SYRINGE IV SCH (05:49)
[2017-06-30] MEDS ORDERED: MAGNESIUM HYDROXIDE 30 ML ORAL.SUSP PO PRN (07:43)
[2017-06-30] MEDS ORDERED: BISACODYL 10 MG SUPP.RECT PR PRN (07:43)
[2017-06-30] MEDS ORDERED: FLEETS ADULT ENEMA PR PRN (07:43)
--- NOTE | 2017-06-30 08:42 | Discharge Summary ---
Medical - DS: Prov Patient information: Note initiated : 06/30/17 at 8:35 am Service Date, if different from initiated Date: [] Patient: Yvon Estrada 72 y/o F admitted on 06/27/17 for Weakness/Pneumonia. Chief Complaint: [] Date of admission: 06/27/17 23:34 Discharge date: 06/30/17 Admitting clinician: Jj Chery Discharging clinician: Jj Chery Medical - DS: Meds - Discharge Medications Prescriptions: Doxycycline Hyclate [Vibramycin] 100 mg PO BID #10 cap fentaNYL [Duragesic] 1 patch TRANSDERMA Q72H #9 patch HYDROcodone/APAP 10/325MG [[place] 10/325Mg] 1 tab PO TID PRN #40 tab PRN Reason: pain Levofloxacin 500 mg PO DAILY #5 tab predniSONE [Prednisone] 10 mg PO ONCE #32 tab Active and Home Medications: Home Medications aspirin 81 mg tablet,delayed release 81 mg PO QDAY tab 11/20/14 [History Confirmed 06/27/17 Last Taken 06/27/17] Albuterol Sulfate [Ventolin] 2 puff INH Q4HP PRN 07/20/15 [History Confirmed Last Taken 06/27/17] furosemide 40 mg tablet 80 mg PO QDAY 90 Days #180 tab 09/11/16 [Rx Confirmed Last Taken 06/27/17] albuterol sulfate 2.5 mg/3 mL (0.083 %) solution for nebulization 2.5 mg INHALATION QID #360 ml 09/21/16 [Rx Confirmed 06/27/17 Last Taken 06/27/17] tiotropium bromide 18 mcg capsule with inhalation device 1 cap INHALATION QDAY # 90 puff 10/06/16 [Rx Confirmed 06/27/17 Last Taken 06/27/17] cholecalciferol (vitamin D3) 1,000 unit capsule 1,000 unit PO QDAY cap [History Confirmed 06/27/17 Last Taken 06/27/17] magnesium oxide 400 mg capsule 400 mg PO QDAY 11/21/16 [History Confirmed Last Taken 06/27/17] lovastatin 40 mg tablet 40 mg PO QPM 90 Days #90 tab 12/04/16 [Rx Confirmed Last Taken 06/27/17] losartan 100 mg tablet 100 mg PO QDAY 90 Days #90 tab 12/18/16 [Rx Confirmed Last Taken 06/27/17] potassium chloride ER 10 mEq tablet,extended release 10 meq PO TID 90 Days #270 tab 01/15/17 [Rx Confirmed 06/27/17 Last Taken 06/27/17] Aggrenox 25 mg-200 mg capsule, extended release 1 cap PO BID 90 Days #180 cap NS 02/06/17 [Rx Confirmed 06/27/17 Last Taken 06/27/17] amlodipine 5 mg tablet 5 mg PO QDAY #90 tab 03/13/17 [Rx Confirmed 06/27/17 Last Taken 06/27/17] allopurinol 300 mg tablet 300 mg PO QDAY #90 tab 05/15/17 [Rx Confirmed Last Taken 06/27/17] fentanyl 25 mcg/hr transdermal patch 1 patch TRANSDERMA Q72H #9 patch 06/26/17 [ Rx Confirmed 06/27/17 Last Taken Unknown] HYDROcodone/APAP 10/325MG [[place] 10/325Mg] 1 tab PO TID PRN 06/27/17 [History Confirmed 06/27/17 Last Taken 06/27/17] Medical - DS: Hosp Hospital course: MMsOscar Estrada is a 72 year old Female with severe copd, on 3L oxyen, morbidly obese , presented to the ER with fatigue and shortness of breath with minimal activity going on for the last 2 days, the patient was here 12 days before admission for shortness of breath and copd exacerbation and was treated with antibiotics and steroids, she never fully recovered from that episode. The patient notes that she just just weak and too fatigued to do anything, at baseline she is able to do basic transfer s and use her walker to go around the house a bit. But now even moving in the bed is too much ,denies any sick contacts, she has chr cough, may be slightly worse than before with minimal expectorations. Usually an infection/ pneumonia will get her very down as per her family. She has severe copd on 3L oxygen at home uses prn prednisone and antibiotics, but this time since she just completed the course did not use it again. In the ER the patient was on 4L oxygen, usually uses 3L , she was short of breath with minimal activity, her labs show leucocytosis at 16K, creat is elevated at 1.4 (baseline 1.0 to 1). ABG shows Ph 7.45/54/109 on 4L UA poc is clear, Patient is being admitted to the hospital for possible pna/ copd exacerbation. Pneumonia: Treated with broad spectrum abx, pt responded well to treatment, microbiology is negative, planned discharge on levofloxa and doxycycline x 5 more days. COPD exacerbation: On 3 L oxygen, at baseline oxygen needs at discharge, continue duonebs, and prn albuterol. Prolonged steroid taper Leucycytosis: chr leucocytosis, present, patient likely related to ? use of steroids? vs other pathology, will need to follow up with PCP for further evaluatoin. The rest of the stay in the hospital was uneventful, she was not keen on going to SNF initially but later agreed. She is weak and will not be able to be safely discharged home. D/c to snf with PCP follow up. Discharge diagnosis: Pneumonia, COPD exacerbation. - Time Spent with Patient Total time spent providing and/or coordinating discharge services: Greater than 30 minutes Medical - DS: Exam - Constitutional Vitals: Vital Signs Temp Pulse Pulse Resp BP BP BP 06/30/17 06:58 97.0 F 16 158/88 06/30/17 03:37 97.9 F 104 H 20 154/76 06/30/17 00:05 98.2 F 111 H 20 157/72 06/29/17 21:51 99.0 F H 20 158/80 06/29/17 18:54 114 H 24 H 06/29/17 16:00 98.9 F 82 16 140/61 06/29/17 15:11 80 16 06/29/17 11:56 104 H 18 06/29/17 11:26 96.5 F L 109 H 22 148/84 Pulse Ox 06/30/17 06:58 94 06/30/17 03:37 97 06/30/17 00:05 98 06/29/17 21:51 97 06/29/17 18:54 06/29/17 16:00 95 06/29/17 15:11 06/29/17 11:56 06/29/17 11:26 96 Intake and Output 01/26/18 01/27/18 01/27/18 21:59 05:59 13:59 Intake Total 300 / 300 120 / 120 Output Total 850 / 850 800 / 800 325 / 325 Balance -850 / -850 -500 / -500 -205 / -205 Intake: Oral 300 / 300 120 / 120 Output: Void Amount 850 / 850 800 / 800 325 / 325 Other: Meal Breakfast Percent of Meal Consumed 100% # Voids 1 # Bowel Movements 0 Weight 216 lb Additional comments: Constitutional; Afebrile, cooperative, alert, not in distress. Eyes- No icterus, , No periorbital swelling Ears- Ext ear normal, hearing normal to conversation. Neck- Midline trachea, supple Respiratory system: Air Entry equal on both sides, No crackles or wheezing, no rhonchi. CVS- Rate rhythm regular, S1,S2 heard, no gallop, no rub. Abdomen- Soft nontender abdomen, no organomegaly, no tenderness, no guarding or rigidity, EMTS- AOOx3, moving all extremities, no gross focal deficit noted. Medical - DS: Data Labs on day of discharge: Labs from last 24 hours 06/30/17 06/30/17 06/29/17 04:20 04:20 08:00 WBC 17.5 H RBC 3.28 L Hgb 10.6 L Hct 33.5 L MCV 102.3 H MCH 32.5 MCHC 31.7 RDW 13.8 Plt Count 233 MPV 8.9 Gran % 76.9 Lymph % (Auto) 13.9 L [place] % (Auto) 5.8 Eos % (Auto) 3.3 Baso % (Auto) 0.1 Gran # 13.5 H Lymph # (Auto) 2.4 [place] # (Auto) 1.0 H Eos # (Auto) 0.6 Baso # (Auto) 0 Sodium 140 Potassium 3.6 Chloride 101 Carbon Dioxide 25 Anion Gap 14.0 BUN 24 H Creatinine 0.9 GFR Calculation 65 Glucose 203 H Uric Acid 3.1 Calcium 8.7 Phosphorus 2.1 L Magnesium 2.0 Total Bilirubin 0.2 Direct Bilirubin < 0.2 GGT 52 H AST 15 ALT 18 Alkaline Phosphatase 53 Lactate Dehydrogenase 181 Total Protein 5.4 L Albumin 3.2 Globulin 2.2 Albumin/Globulin Ratio 1.5 Triglycerides 209 H Vancomycin Trough 21.0 H* Preliminary micro results at discharge 06/27/17 22:50 Blood Culture - Preliminary Blood 01/24/18 22:20 Blood Culture - Preliminary Blood Medical - DS: A/P - Patient/Caregiver Discharge Instructions Activity: as per physical therapy Diet: Regular Diet Additional Instructions: Pt admitted for pneumonia and copd exacerbation. Antibiotics for another 5 more days Go to the ER if worsening condition, chest pain, fever or any other acute concern. Steroid taper as directed Follow up with PCP in 1 week Recommend PCP check CBC, CMP in 2 week after discharge to document continued improvement. - Follow up Plan Follow up with: Linda Mosley MD [Physician] - Disposition: Xfer SNF Prognosis: Fair Rehab Potential: Fair I certify that the patient requires SNF services: Yes Overall status at discharge: patient is progressing back to baseline Medical - DS: Qual - VTE Deep Vein Thrombosis/Pulmonary Embolism Present on Admission: No
[2017-06-30] MEDS: MAGNESIUM OXIDE 400 MG TABLET PO SCH (09:54)
[2017-06-30] MEDS: ASPIRIN 81 MG TAB.CHEW PO SCH (09:54)
[2017-06-30] MEDS: amLODIPine 5 MG TABLET PO SCH (09:54)
[2017-06-30] MEDS: DOCUSATE SODIUM 100 MG CAPSULE PO SCH (09:54)
[2017-06-30] MEDS: ASPIRIN PO SCH (09:54)
[2017-06-30] MEDS: LEVOFLOXACIN 500 MG/100 ML BAG IV SCH (09:54)
[2017-06-30] MEDS: DIPYRIDAMOLE PO SCH (09:54)
[2017-06-30] MEDS: ENOXAPARIN 40 MG/0.4 ML SYRINGE SQ SCH (09:54)
[2017-06-30] MEDS: ALLOPURINOL 300 MG TABLET PO SCH (09:55)
[2017-06-30] MEDS: VITAMIN D3 1,000 UNIT TABLET PO SCH (09:55)
[2017-06-30] MEDS ORDERED: fentaNYL 25 MCG PATCH TOPICAL SCH (10:00)
== END 2017-06-30 10:00 | DRG 190 ==
LOC: ED 19:29 → MEDSUR 23:32
PROVIDERS: ADMIT Internal Medicine; ATTEND Internal Medicine